=== PATIENT | female | born 1955 | race Native Hawaiian/Other Pacific Islander ===

== ENCOUNTER 2023-10-31 09:30 | Outpatient (RCR) | payer MEDICARE, SELFPAY ==
--- NOTE | 2023-09-29 13:52 | PT.OPEX ---
PT [place] [facility] Eval PT [facility] Outpatient Eval Start: 09/28/23 13:17 Freq: Status: Active Protocol: Document 09/29/23 07:07 JACLYN (Rec: 09/29/23 07:10 JACLYN [id number]) E-signed By Beulah Baum PT Physical Therapy Outpatient Evaluation Insurance Information Recert Due Date 12/24/23 Insurance Name Medicare B Medical Diagnosis Pelvic Bone Pain Treating Diagnosis Rt ant ilial rotation Sacral torsion Impaired mm strength hip EXT/ ABD/ER Rectus femoris and iliopsoas, piriformis hypertonicity Referring MD Clara Ortiz - [facility] /Internal Subjective Subjective Lashawn reports having pain for the past few months. Not sure why it started. Ages ago I fell down and broke my tailbone. I did have 2 surgeries for that. 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 She has retired now, after RCR on Rt shoulder. Pain varies from very low to moderate. Can still take care of all of her self cares and home chores. Pain is at (pointed to) SIJ as well as lower abdomen, front of pelvis. Sometimes hurts when sitting, other times fine with sitting. Normally walking hurts. She walks for exercise 40 min in the morning and in the evening, pain is actually a bit less. They did lower abdominal US and did not find anything. Denies incontinence/bladder issues. Pain Comments low to moderate at miri SIJ and LB, front of pelvis too Date of Last Physician Visit 08/24/23 Current Work Status Retired Occupation Worked at [employer] for nearly 15 years Preferred Name Expert Precautions Treatment Precautions/Contraindications Arthritis, osteopenia Weight Bearing Status Full Weight Bearing Therapy Limitations/Systems Review Vision Assessment Assessment/Impression 67 yo female with DX of Pelvic Bone Pain. She arrived to dept via IND ambulation with slightly narrow Tressa and reduced heel to toe gait, more flat foot strike. She has a flattened lumbar spine, some tightness in Rt rectus femoris and anteriorly rotated Rt ilium. Hypertonic at miri iliopsoas mm group. Inhibited hip ADD and weakness at miri hip EXT and ABD 3+/5. Tightness of miri hamstrings. Pain with spring mob assessment of Rt ilium AP direction and at Lt superior sacral angle. Hypertonic at miri piriformis. Symptoms are consistent with probable Rt ilial rotation and sacral torsion. She will benefit from continued skilled physical therapy to complete STM to lumbar psps, gluts/piriformis, complete MET for asymmetry correction and educate in proper stretch/strength HEP to promote symmetry and pain control. Thank you for this referral. Plan of Care Rehabilitation Potential Good Physical Therapy Goals In 4-6 visits, Lashawn will be able to report: 1. Reduced pain by at least 50 % with execution of self cares and ADL's. 2. Walk for ex 40 min at a time 1-2X/Day without pain greater than 3/10 75% of the time. 3. IND in proper execution of HEP with emphasis on pace, reps and alignment 4. Sit to stand transition fairly painfree 80% of the time 5. Absence of sensation of knee buckling with gait. Coordination/Communication With Referral Source Treatment Plan/Direct Interventions Joint Mobilization,Manual Therapy,Neuromuscular Re-ed, Self-Care/Home Management, Therapeutic Activities, Therapeutic Exercises Frequency/Duration 1X/Wk for 10 visits Patient Will Be Discharged From Therapy Completion of LTG(s),Skills Plateau,Independent w/HEP, Independently Progressing Evaluation Billing Untimed Code Treatment Minutes 22 Complexity Moderate Certification Information Initial Certification Date 09/29/23 Ending Certification Date 12/24/23 Provider Signature Shows Agreement With POC & Medical Necessity Physician Signature & Date Requested Please Sign/Date Here Physician Comment/Change : Physician NPI Number #
== END 2024-02-28 23:59 | disposition home or self-care (01) ==
PROVIDERS: PCP Family Medicine; Visit Provider Family Medicine
DX: M89.9 Disorder of bone, unspecified (principal); M53.3 Sacrococcygeal disorders, not elsewhere classified; R29.898 Other symptoms and signs involving the musculoskeletal system; Z51.89 Encounter for other specified aftercare
CPT/HCPCS: 97110; 97140; 97162